=== PATIENT | male | born 1955 | race Caucasian/White ===

== ENCOUNTER 2016-06-21 08:09 | Emergency (ER) | payer BC ==
[~2016-06-21] VITALS: Ht 172.7 cm; Wt 79.0 kg
[2016-06-21 11:03] VITALS: BP 130/64
== END 2016-06-21 11:03 | disposition home or self-care (01) ==
LOC: ED 08:09
DX: J20.9 Acute bronchitis, unspecified (principal); E11.9 Type 2 diabetes mellitus without complications

== ENCOUNTER 2018-02-08 07:59 | Inpatient (IN) | payer BC ==
[~2018-02-08] VITALS: Ht 172.7 cm; Wt 83.0 kg
[2018-02-08 08:17] VITALS: Ht 172.7 cm; Wt 83.0 kg
[2018-02-08 09:35] LABS: BASOPHIL % 0.4 % (0-2); PLATELET COUNT 284 x10^3mcL (130-400); RED CELL DISTRIBUTION WIDTH 13.3 % (11.5-14.5)
[2018-02-08 09:48] LABS: CALCIUM 8.5 mg/dL (8.5-10.1); CARBON DIOXIDE 28.1 mmol/L (21-32); CHLORIDE SERUM 101 mmol/L (98-107); CREATININE SERUM 0.8 mg/dL (0.7-1.3); GFR1 > 60 mL/min; GLUCOSE SERUM 272 mg/dL (74-106); POTASSIUM SERUM 4.3 mmol/L (3.5-5.1); SODIUM SERUM 137 mmol/L (136-145)
[2018-02-08 09:59] LABS: FREE T4 1.2 ng/dL (0.76-1.46); T4(THYROXINE) 8.3 ug/dL (4.7-13.3)
[2018-02-08 10:01] LABS: ALKALINE PHOSPHATASE 92 U/L (46-116); ALT/SGPT 24 U/L (16-63); AST/SGOT 21 U/L (15-37); BILIRUBIN TOTAL 0.34 mg/dL (0.20-1.00); C REACTIVE PROTEIN 4.4 mg/dL (<=0.9); TOTAL PROTEIN, SERUM 7.3 g/dL (6.4-8.2)
[2018-02-08 10:11] LABS: T3 TOTAL 1.22 ng/mL
[2018-02-08 10:14] LABS: CK-MB 2.5 ng/mL (0-3.6)
[2018-02-08 10:29] LABS: ERYTHROCYTE SED RATE 67 mm/hr (0-20)
[2018-02-08 12:02] LABS: MAGNESIUM 1.7 mg/dL (1.8-2.4); PHOSPHOROUS 3.4 mg/dL (2.5-4.9)
[2018-02-08] MEDS ORDERED: METFORMIN HCL1000 MG PO (12:30)
[2018-02-08 12:46] LABS: microscopic required? NO
[2018-02-08 13:14] LABS: UA SPECIFIC GRAVITY 1.025 (1.005-1.035); urine erythrocyte NEGATIVE (NEGATIVE)
[2018-02-08 13:23] LABS: AMPHETAMINE QUAL UR NONE DETECTED (See below)
[2018-02-08 14:21] VITALS: BP 129/71
[2018-02-08 21:04] VITALS: BP 115/71
[2018-02-09 06:14] VITALS: BP 124/70
[2018-02-09 07:05] LABS: BASOPHIL % 0.5 % (0-2); PLATELET COUNT 282 x10^3mcL (130-400); RED CELL DISTRIBUTION WIDTH 13.3 % (11.5-14.5)
[2018-02-09 07:36] LABS: CALCIUM 8.1 mg/dL (8.5-10.1); CARBON DIOXIDE 26.5 mmol/L (21-32); CHLORIDE SERUM 103 mmol/L (98-107); CREATININE SERUM 0.8 mg/dL (0.7-1.3); GFR1 > 60 mL/min; GLUCOSE SERUM 172 mg/dL (74-106); MAGNESIUM 1.7 mg/dL (1.8-2.4); PHOSPHOROUS 2.9 mg/dL (2.5-4.9); POTASSIUM SERUM 4.2 mmol/L (3.5-5.1); SODIUM SERUM 137 mmol/L (136-145)
[2018-02-09 08:12] VITALS: BP 114/71
[2018-02-09 12:29] VITALS: BP 105/64
[2018-02-09 16:42] VITALS: BP 107/66
[2018-02-09 21:16] VITALS: BP 121/77
[2018-02-10 05:41] VITALS: BP 113/65
[2018-02-10 07:33] LABS: BASOPHIL % 0.4 % (0-2); PLATELET COUNT 285 x10^3mcL (130-400); RED CELL DISTRIBUTION WIDTH 13.3 % (11.5-14.5)
[2018-02-10 08:07] LABS: CALCIUM 8.4 mg/dL (8.5-10.1); CARBON DIOXIDE 26.1 mmol/L (21-32); CHLORIDE SERUM 104 mmol/L (98-107); CREATININE SERUM 0.7 mg/dL (0.7-1.3); GFR1 > 60 mL/min; GLUCOSE SERUM 148 mg/dL (74-106); MAGNESIUM 1.8 mg/dL (1.8-2.4); PHOSPHOROUS 3.1 mg/dL (2.5-4.9); SODIUM SERUM 138 mmol/L (136-145)
[2018-02-10 09:22] VITALS: BP 130/55
[2018-02-10] MEDS ORDERED: NIT0.4 SL (13:14)
[2018-02-10] MEDS ORDERED: LOV80I SC (13:14)
[2018-02-10] MEDS ORDERED: LIPI10 PO (13:14)
[2018-02-10] MEDS ORDERED: ECO81 PO (13:14)
[2018-02-10] MEDS ORDERED: TYL325 PO (13:15)
[2018-02-10] MEDS ORDERED: BG FS (13:15)
[2018-02-10] MEDS ORDERED: ZOFI IV (13:16)
[2018-02-10] MEDS ORDERED: COL100 PO (13:16)
[2018-02-10] MEDS ORDERED: DEXPF IV (13:16)
[2018-02-10] MEDS ORDERED: HUMULIN R100 U/1 M1 SC (13:16)
[2018-02-10] MEDS ORDERED: ROC1I IV (13:17)
[2018-02-10] MEDS ORDERED: AZITHROMYC100 MG/5 M IV (13:18)
[2018-02-10] MEDS ORDERED: ROBL PO (13:19)
[2018-02-10 13:57] VITALS: BP 116/74
[2018-02-10 16:02] VITALS: BP 116/74
[2018-02-10 17:31] VITALS: BP 104/56
[2018-02-10 19:10] VITALS: BP 113/73
[2018-02-11 05:19] VITALS: BP 105/61
[2018-02-11 09:20] VITALS: BP 117/63
[2018-02-11 12:40] VITALS: BP 122/68
[2018-02-11 15:03] VITALS: BP 113/64
[2018-02-11 16:29] VITALS: BP 119/74
[2018-02-11 19:10] VITALS: BP 101/65
[2018-02-12 05:58] VITALS: BP 116/69
[2018-02-12 06:37] LABS: BASOPHIL % 0.6 % (0-2); PLATELET COUNT 307 x10^3mcL (130-400); RED CELL DISTRIBUTION WIDTH 13.5 % (11.5-14.5)
[2018-02-12 06:45] LABS: CALCIUM 8.8 mg/dL (8.5-10.1); CARBON DIOXIDE 25.6 mmol/L (21-32); CHLORIDE SERUM 102 mmol/L (98-107); CREATININE SERUM 0.8 mg/dL (0.7-1.3); GFR1 > 60 mL/min; GLUCOSE SERUM 158 mg/dL (74-106); MAGNESIUM 1.8 mg/dL (1.8-2.4); PHOSPHOROUS 3.7 mg/dL (2.5-4.9); POTASSIUM SERUM 4.3 mmol/L (3.5-5.1); SODIUM SERUM 138 mmol/L (136-145)
[2018-02-12 09:27] VITALS: BP 119/68
[2018-02-12 17:03] VITALS: BP 115/72
[2018-02-12 20:33] VITALS: BP 119/71
[2018-02-12 21:37] VITALS: BP 119/71
[2018-02-12] MEDS ORDERED: METFORMIN HCL1000 MG PO (22:37)
== END 2018-02-12 23:37 | disposition short-term general hospital (02) | DRG 280 ==
LOC: ED 07:59 → DU 11:00
PROVIDERS: Family Medicine; Internal Medicine; Specialist
DX: I21.4 Non-ST elevation (NSTEMI) myocardial infarction (principal); J18.9 Pneumonia, unspecified organism; N17.0 Acute kidney failure with tubular necrosis; I50.43 Acute on chronic combined systolic (congestive) and diastolic (congestive) heart failure; E44.0 Moderate protein-calorie malnutrition; I25.10 Atherosclerotic heart disease of native coronary artery without angina pectoris; E78.5 Hyperlipidemia, unspecified; E11.65 Type 2 diabetes mellitus with hyperglycemia; Z68.27 Body mass index [BMI] 27.0-27.9, adult; Z79.84 Long term (current) use of oral hypoglycemic drugs; Z79.899 Other long term (current) drug therapy; Z79.82 Long term (current) use of aspirin
CPT/HCPCS: 36600; 82962; 83880; 84439; 87804; 90732; A9500; J0456; J0696; J1650; J2543; J2785; J7030; J7040; J7050; J7620